=== PATIENT | male | born 2005 | race Caucasian/White ===

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

== ENCOUNTER 2024-09-03 23:12 | Observation (INO) | payer OTHER, SELFPAY ==
--- OUTSIDE RECORDS SUMMARY | 2024-09-03 23:21 | XMS_ITS | Clinical Summary ---
Author Organization [facility] Address [address] [id number] Care Team Providers Care Ventilating Expert Name Role Phone Dayna Monroe LINUS Primary Care Provider [phone] Allergies No known active allergies Medications buPROPion XL (Wellbutrin XL) 150 MG 24 hr tablet Take 150 mg by mouth 1 (one) time each day. Do not crush, chew, or split. Active guanFACINE (Intuniv) 2 mg 24 hr tablet Active amLODIPine (Norvasc) 5 MG tabletIndication s:Mixed connective tissue disease (CMS/HCC),Acro osteolysis syndrome Take 1 tablet (5 mg total) by mouth 2 (two) times a day. 60 tablet 2 08/20/2021 Active levocetirizine (Xyzal) 5 MG tablet if needed. 10/02/2021 Active hydroxychloroqui ne (Plaquenil) 200 MG tabletIndication s:Overlap syndrome (CMS/HCC),Mixed connective tissue disease (CMS/HCC),Rheuma toid arthritis involving multiple sites with positive rheumatoid factor (CMS/HCC) Take 1 tablet (200 mg total) by mouth 1 (one) time each day. 30 tablet 2 11/18/2021 Active mycophenolate (Cellcept) 500 MG tabletIndication s:Overlap syndrome (CMS/HCC),Mixed connective tissue disease (CMS/HCC) Take 1 tablet (500 mg total) by mouth 2 (two) times a day. 60 tablet 2 11/18/2021 Active Active Problems Problem Noted Date Diagnosed Date Nonadherence to medication 08/20/2021 Interstitial lung disease 01/14/2021 Overview (08/20/2021): Last PFTs 07/[address] chest 11/2020: DLCO adj 90.5% pred, FVC 105% predicted, FEV1 97% 04/2021: DLCO adj 85% pred, FVC 106%, FEV1 92% 10/2020: DLCO adj 69% pred, FVC 96%, FEV1 80% Rheumatoid arthritis involvi ng multiple sites with positive rheumatoid factor 11/30/2020 Sclerodactyly 11/30/2020 Mixed connective tissue disease 10/10/2020 Overview (11/18/2021): +Diffuse sclerodactyly w/acroosteolysis, arthritis w/contracture. +ILD. 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 +RF+CCP. Neg: dsDNA, SSA/SSB, scl70, centromere, Jo1. Last echo 10/2020 - normal (due 1y, 10/2021). Last PFTs 07/2021 (q6m, next 01/2022) - stably improved. 09/2020: First visit [facility]. 3-4 years hand swelling/Raynauds/digital pitting. NO h/o dyspnea or GI s/s. Initial exam s/f: digital pitting (b/l 2nd/3rd digits), acroosteolysis (b/l index fingers), sclerodactyly, L wrist effusion, diffuse joint contracture and limited ROM of: neck extension, shoulders, b/l elbow ext, b/l wrist flex/ext, fingers (flexion contracture of all), hips (limited ext rotation), ankles (limited eversion/inversion, flex/ext w/synovial hypertrophy). Toes w/lat deviation. Plan: short pred taper (20 mg, decr x5 mg weekly x4w), HCQ (200 mg PO daily, =3.3 mg/kg/d) and MMF (start at 500 mg BID, increase to goal 1000 mg BID, = 588 mg/m^2/dose). +PT/OT. RTC 4w. 11/2020: Little improvement w/steroids. Not started PT/OT. Reduced DLCO (70% pred). Refer to pulm. PFTs q3m (next Jan 2021). Echo wnl. Meds: incr MMF to goal (1000 mg BID), incr HCQ to 300 mg qd (5 mg/kg/d), start amlodipine (2.5 mg qd x14d then increase to 5 mg daily if tolerated). Discussed ritux for arthritis, ILD- getting pre-ritux labs today. 12/2020: Interval mild softening of skin on hands. Mild improvement in finger/shoulder ROM w/OT. Still many deficits. Issues w/med adherence. Reviewed meds, doses. Continue MMF (1000 mg PO BID), HCQ (300 mg PO qd) and amlodipine (5 mg PO qd). Pt/aunt prefer to pursue ritux after dental implants complete. IACS to R wrist today. F/u pulm for ILD. RTC Mar 2021. PFTs Mar 2021. 03/2021: Worsened digital pitting/Raynaud's. Incr amlodipine (from 5 to 10 mg daily)- consider sildenafil if no improvement. 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 Continue MMF (1000 mg PO BID) and HCQ (300 mg qd). Continue to recommend Ritux. Due for repeat PFTs- ordered. RTC April 2021. 04/2021: Pitting increased (R 1/2/3, L 2/3) despite BID amlodipine. Plan to rx sildenafil. Otherwise, skin texture, ROM and arthritis all improving. Repeat PFTs Apr 2021 improved compared to Oct 2020 (DLCO normalized, FEV1/FVC improved). Significant unintentional weight loss (10 lbs/4 months). Favor calorie deficit (over malabsorption). CTM, consider oral supplement/nutritional eval. Continue MMF (1000 mg PO BID , 600 mg/m^2/dose), HCQ 300 mg po qd (5.2 mg/kg/d). Family willing to proceed with Ritux infusions. Labs due May 2021. RTC July 2021. PFTs July. 07/2021- July PFTs stably improved. Received Ritux (1000 mg IV x2, 07/09 & 07/26/21). 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 Bradycardia during infusions --> EKG --> abnormal. Referred to adult cards. Wearing holter, has cardiac MRI scheduled. Arthritis stable/improved. Pitting stable. Self-DC'd PT/OT. Issues w/med adherence. Recommend resuming PT/OT. Continue MMF (1000 mg PO BID) and HCQ (300 mg PO qd). Wt stable/low. Work on increasing intake. Next PFTs Jan 2022. RTC Oct 2021, w/labs at visit. 10/2021- Worsening digital pitting (now R 1/2/3/4 and L 1/2/3 on distal tips, ALSO with dorsal pitting left 4th PIP, new), i/s/o self DC of IMT d/t perceived sfx (nausea, fatigue). Plan to decrease MMF (to 500 mg PO BID) and HCQ (to 200 mg PO qd), HOLD amlodipine (typically 5 mg PO BID). Will check in w/Jaylen in 3w. If feeling better, will resume amlodipine. Labs today. Next PFTs Mar/Apr 2022. RTC Jan 2022. 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 Resolved Problems Problem Noted Date Diagnosed Date Resolved Date Nicotine vapor product user 10/10/2020 11/30/2020 Family History Medical History Relation Name Comments Lung cancer Father Arthritis Neg Hx Lupus Neg Hx Scleroderma Neg Hx Thyroid disease Neg Hx Relation Name Status Comments Father Social History Tobacco Use Types Packs/Day Years Used Date Smoking Tobacco: Never Smokeless Tobacco: Former Sex and Gender Information Value Date Recorded Sex Assigned at Not on file Legal Sex Male 12:34 PM EDT Gender Identity Not on file Sexual Orientation Not on file Last Filed Vital Signs Vital Sign Reading Time Taken Comments Blood Pressure 104/61 11/18/2021 12:13 PM EDT Pulse 76 11/18/2021 12:13 PM EDT Temperature 37.2 C (99 F) 11/18/2021 12:13 PM EDT Respiratory Rate 18 11/18/2021 12:13 PM EDT Oxygen Saturation - - Inhaled Oxygen Concentration - - Weight 54.7 kg (120 lb 9.5 oz) 11/18/2021 12:13 PM EDT Height 174.4 cm (5' 8.66 ) 11/18/2021 12:13 PM E DT Body Mass Index 17.98 11/18/2021 12:13 PM EDT Plan of Treatment Health Maintenance Due Date Last Done Comments [facility]-Depression Screening 2003 [facility]-HIV Screening 2003 [facility]-Infant/Child/Adol SDOH Screenings 2003 [id number] Vaccine (#1) 2008 [facility]-Pneumococcal Vaccine: Pediatrics (0 to 5 Years) and At-Risk Patients (6 to 49 Years) (1 of 1 - PPSV23) 2009 2003, 2003 HPV Vaccines (3 - Risk male 3-dose series) 10/28/2020 06/28/2020, 10/07/2017 [facility]- SDOH Screenings 2021 [facility]-Adult SDOH Screenings 2021 [facility]-Zoster Vaccines (1 of 2) 2022 09/17/2015, 12/10/2004 [facility]-Influenza Vaccine (#1) 2024 03/05/2017 [facility]-DTaP,Tdap,and Td Vaccines (7 - Td or Tdap) 09/16/2025 09/17/2015, 09/15/2007, 02/05/2005, Additional history exists [facility]-Hepatitis B Vaccines Completed 004, 2003, 2003 [facility]-HIB Vaccines Completed 12/10/2004, , 2003, Additional history exists [facility]-IPV Vaccines Completed 09/15/2007, 08/2004, 2003, Additional history exists [facility]-Varicella Vaccines Completed 09/17/2015, 2004 [facility]-Hepatitis A Vaccines Completed 10/07/2017, 05/2017 [facility]-Hepatitis C Screening Completed 11/30/2020 [facility]-Rotavirus Vaccines Aged Out No lo nger eligible based on patient's age to complete this topic Procedures Procedure Name Priority Date/Time Associated Diagnosis Comments HEPATITIS C ANTIBODY W/REFLEX TO HCV QUANT PCR Routine 11/30/2020 11:38 AM EDT Mixed connective tissue disease (CMS/HCC) from Last 3 Months or Most Recently Relevant to Health Maintenance Results * Hepatitis C Antibody (11/30/2020 11:38 AM EDT) Hepatitis C Antibody Negative Negative 11/30/2020 6:29 PM EDT [facility] Blood Venous blood specimen / Unknown Venipuncture / Unknown 11/30/2020 11:38 AM EDT 11/30/2020 11:38 AM EDT us Colleen Hull MD LAB BLOOD ORDERABLES Final Resu lt [facility] [address] [place] [address] from Last 3 Months or Most Recently Relevant to Health Maintenance Care Teams Ventilating Expert Relationship Specialty Start Date End Date Dayna Monroe PA [address] [place] [address] PCP - General 07/13/20
[2024-09-03 23:22] VITALS: BP 151/92; PULSE 127; RESP 20; TEMP 37.3; O2SAT 96; BMI 17.9
--- NOTE | 2024-09-03 23:33 | ECG_ITS ---
APPROVED REPORT Exam: Resting ECG HR:127 bpm ECG Measurements Heart Rate 127 AXES IA 117 P 57 QRSd 102 QRS 84 QT 286 T 65 QTc 361 Conclusion SINUS TACHYCARDIA WITH SHORT IA INTERVAL POSSIBLE RIGHT VENTRICULAR CONDUCTION DELAY [RSR (QR) IN V1/V2] EARLY REPOLARIZATION [ST ELEVATION WITH NORMALLY INFLECTED T-WAVE] ABNORMAL RHYTHM ECG UNCONFIRMED REPORT Electronically signed by : RUTH WYNNE, 09/05/2024 04:58:34
--- NOTE | 2024-09-03 23:44 | XR_ITS ---
PROCEDURE INFORMATION: Exam: XR Chest Exam date and time: 09/03/2024 11:48 PM Age: 19 years old Clinical indication: Pain; On breathing; Additional info: SOA TECHNIQUE: Imaging protocol: Radiologic exam of the chest. Views: 2 views. COMPARISON: No relevant prior studies available. FINDINGS: Lungs: Unremarkable. No consolidation. Pleural spaces: Minimal blunting of the left posterior costophrenic angle suggestive of a small pleural effusion. No pneumothorax. Heart/Mediastinum: Unremarkable. No cardiomegaly. Bones/joints: Chronic bilateral rib fractures. IMPRESSION: Minimal blunting of the left posterior costophrenic angle suggestive of a small pleural effusion.
[2024-09-03 23:51] LABS: Hematocrit 38.6 % (42.0-52.0); Hemoglobin 12.4 g/dL (14.1-18.0); Immature Granulocytes % 0.9 %; Mean Corpuscular HGB Conc 32.1 g/dL (31.8-35.4); Mean Corpuscular Hemoglobin 26.0 pg (27.0-31.2); Mean Corpuscular Volume 80.9 fl (80-94); Nucleated Red Blood Cells % 0 %; Platelet Count 414 K/mm3 (142-424); Red Blood Count 4.77 M/mm3 (4.60-6.20); Red Cell Distribution Width-SD 40.3 fL; White Blood Count 14.2 K/mm3 (4.8-10.8)
[2024-09-03 23:57] LABS: Alanine Aminotransferase 16 U/L (12-78); Albumin Level 4.3 g/dl (3.5-5.0); Albumin/Globulin Ratio 1.0 (1.1-1.8); Alkaline Phosphatase 87 U/L (38-126); Anion Gap 15.2 mEq/L (5-15); Aspartate Amino Transferase 32 U/L (17-59); Bilirubin,Total 0.9 mg/dl (0.2-1.3); Blood Urea Nitrogen 7 mg/dl (9-20); Calcium 9.2 mg/dl (8.4-10.2); Carbon Dioxide 29 mmol/L (22.0-30.0); Chloride 93 mmol/L (98-107); Creatinine Clearance Estimated 134 mL/min (50-200); Creatinine,Serum 0.70 mg/dl (0.66-1.25); Estimated Glomerular Filt Rate 142 ml/min (>60); GFR (African American) 172 ML/MIN (>60); Globulin 4.5 g/dL (1.3-3.2); Glucose 139 mg/dl (74-100); Potassium 4.2 mmoL/L (3.5-5.1); Sodium 133 mmol/L (136-145); Total Protein,Serum 8.8 g/dl (6.3-8.2)
--- NOTE | 2024-09-03 23:57 | ED_ITS ---
Discharge Plan Disposition Patient Disposition: Admitted Clinical Impressions Clinical Impression: Pericarditis, Acute pericardial effusion, Tachycardia with heart rate 121-140 beats per minute Discharge ED Provider: Calos Mcclure General Adult HPI General Chief complaint: Shortness of Breath/Dyspnea Stated complaint: soa, abd pain Time Seen by Provider: 09/03/24 23:28 Mode of Arrival: Ambulatory Source of Information: Patient Description of Symptoms (Recalled from ER Triage Doc. by RN): Pt presents to ED for SOA X 1 week. Pt is afraid he has pneumonia. Pt states he has felt bad for approx 1 week. He has not taken any OTC meds and did not see PCP. Pt admits to Meth & marijuana use. Pt states he last used meth 2 day ago. Pt has hx of Raynaud's Syndrome. Pt is A&O*4 and only has pain upon inspiration. Rates pain 8/10 at that time. History of Present Illness HPI narrative: 19-year-old male with history of mixed connective tissue disorder, possible rheumatoid arthritis and Raynaud's, presents for worsening shortness of breath. He reports it has been ongoing for about a week but has gotten significantly worse over the last couple of days. Reports some chest pain and pain with inspiration. He reports intermittent meth and marijuana use, last use meth approximately 2 days ago. He reports nonproductive cough. Nothing like this has happened before. He denies fever. Related Data Previous Rx's ?Medication ?Instructions ?Recorded amoxicillin 500 mg tablet 500 mg PO BID 10 days #20 ta bs 07/28/23 prednisone 20 mg tablet 20 mg PO BID 5 days #10 tabs 07/28/23 Allergies Allergy/AdvReac Type Severity Reaction Status Date / Time No Known Allergies Allergy Verified 07/28/23 09:58 [facility] Disclaimer: The information contained in this section may have been updated after the patient was seen, as this information can be updated by other users. Medical History Tobacco use Anxiety and depression Mixed connective tissue disease (~05/2020) Insomnia Rheumatoid arthritis History of methamphetamine abuse Raynaud disease Attention deficit hyperactivity disorder (ADHD) Anxiety Social History Smoking Status: Current every day smoker tobacco type: cigarettes packs per day: 1 alcohol intake: never substance use type: former substance user current occupational status: other Travel in the last 8 weeks?: Inside the [place] Have you lived/traveled outside US in past 30 days?: No Contact w/someone who lives/traveled outside US past 30 days?: No Exposure to someone with infectious disease in past 14 days?: No Do you have a fever (greater than 100.4 F or 38 C)?: No Have you tested positive for COVID-19?: No Exposed to someone with COVID-19 in past 14 days?: No Do you have a sore throat?: No Do you have a cough?: No Do you have any weakness?: No Do you have any diarrhea?: No Are you experiencing any unusual bleeding?: No Do you have any muscle aches/pain?: No Do you have any abdominal pain?: Yes Are you experiencing loss of taste or smell?: No Other Medical History Have you received the Pneumonia Vaccine: No ROS Obtained: Yes All systems reviewed & no additional complaints except as documented Physical Exam General General appearance: alert and in no apparent distress Head Head exam: atraumatic and normocephalic Eye Eye exam: Present normal appearance, PERRL and EOMI ENT ENT exam: Present normal oropharynx and normal external ear exam Neck Neck exam: Present normal inspection and full ROM Chest Chest inspection: Present normal inspection and symmetric chest wall rise; Absent tenderness Respiratory Respiratory exam: Present normal lung sounds bilaterally and respiratory distress (Tachypnea) Cardiovascular Cardiovascular exam: Present normal rhythm and tachycardia Abdominal Exam Abdominal exam: Present soft; Absent distention, tenderness or guarding Extremities Exam Extremities exam: Present normal inspection; Absent edema or joint swelling Back Exam Back exam: Present normal inspection; Absent tenderness Neurological Exam Neurological exam: Present alert and oriented X3; Absent motor sensory deficit Psychiatric Psychiatric exam: Present normal affect and normal mood Skin Skin exam: Present warm, dry and normal color Lymphatic Lymphatic Findings: no adenopathy Medical Decision Making Medical Records Medical records reviewed: Yes I reviewed the patient's medical records. Screening: Per USPSTF and CDC recommendations, given the prevalence of disease in our region, it is our hospital?s policy to screen for HIV and viral Hepatitis for all patients aged 18 and over and those with ongoing risk factors. Driss Inquiry Pt receiving controlled substance: No Driss was queried for this patient: No Vital Signs: 09/03/24 23:22 07/06/25 02:28 Temperature 99.2 F 98.8 F Temperature Source Oral Oral Pulse Rate 120 H Pulse Rate [Left] 127 H Respiratory Rate 20 20 Blood Pressure 112/76 Blood Pressure [Right Arm] 151/92 H Blood Pressure Mean [Right Arm] 111 Blood Pressure Source Automatic Cuff Blood Pressure Position Sitting 02 Sat by Pulse Oximetry 96 Oxygen Delivery Method Room Air Room Air Lab Data Lab results reviewed: Yes I reviewed the patient's lab results. Lab Results 09/03/24 23:21: WBC 14.2 H, RBC 4.77, Hgb 12.4 L, Hct 38.6 L, MCV 80.9, MCH 26.0 L, MCHC 32.1, RDW 13.6, Plt Count 414, MPV 10.0, Neut % (Auto) 71.1, Lymph % (Auto) 15.6, [place] % (Auto) 11.9 H, Eos % (Auto) 0.1, Baso % (Auto) 0.4, Neut # (Auto) 10.1 H, Lymph # (Auto) 2.2, [place] # (Auto) 1.7 H, Eos # (Auto) 0.0, Baso # (Auto) 0.1, Total Counted 100, Neutrophils % (Manual) 73, Lymphocytes % (Manual) 15, Monocytes % (Manual) 12 H, Platelet Estimate Normal, RBC Morphology Normal, D-Dimer 1.10 H, Sodium 133 L, Potassium 4.2, Chloride 93 L, Carbon Dioxide 29, A nion Gap 15.2 H, BUN 7 L, Creatinine 0.70, Estimated Creat Clear 134, Estimated GFR 142, Est GFR ( Amer) 172, Glucose 139 H, Calcium 9.2, Total Bilirubin 0.9, AST 32, ALT 16, Alkaline Phosphatase 87, Troponin I 0.02, NT-Pro-B Natriuret Pep 792 H, Total Protein 8.8 H D, Albumin 4.3, Globulin 4.5 H, A lbumin/Globulin Ratio 1.0 L, HCV Ab HECTOR w/Rflx PCR Qn Negative, HIV Ag/Ab Combo Qual Negative 09/03/24 23:21 09/03/24 23:21 Orders (Tests/Meds): ED MEDICATIONS Discontinued Medications Generic Name Dose Route Start Last Admin Trade Name Freq PRN Reason Stop Dose Admin Iopamidol 70 ml 09/04/24 01:09 Iopamidol-370 (76%);100ml Bottle IV 09/04/24 01:10 ONCE ONE Sodium Chloride 50 ml 09/04/24 01:09 0.9 % Sodium Chloride 50 Ml Vial IV 09/04/24 01:10 ONCE ONE Sodium Chloride 10 ml 09/04/24 01:09 Sodium Chloride 0.9% 10ml Syr (Rad Only) IV 09/04/24 01:10 ONCE ONE ORDERS Category Date Time Status CT angio chest PE protocol Stat Cat Scan 09/04/24 00:42 Completed CXR 2 view (NOT portable) [XR chest 2V] Stat Exams 09/03/24 23:44 Completed BNP [NT Pro Brain Natriuretic Pep.] Stat Lab 09/03/24 23:21 Completed CBC w/Auto Diff [Complete Blood Count Auto Diff] Stat Lab 09/03/24 23:21 Completed CMP [Comprehensive Metabolic Panel] Stat Lab 09/03/24 23:21 Completed D-Dimer Stat Lab 09/03/24 23:21 Completed HIV Combo Stat Lab 09/03/24 23:21 Completed Hepatitis C Ab Qual. W/ RFX Stat Lab 09/03/24 23:21 Completed Troponin I Q3H Lab 09/03/24 23:21 Completed Troponin I Q3H Lab 09/04/24 02:45 Ordered ECG Data Tracing #1: I reviewed this ECG and interpreted as documented below: Sinus tachycardia, rate of 127, some SD depression ECG initial impression date: 09/03/24 ECG initial impression time: 23:20 HEART Score History (anamnesis): Slightly suspicious ECG: Non-specific disturbance Age: <45 years Risk factors: No known risk factors Troponin: </= normal limit HEART Score: 1 Medical Decision Narrative: 19-year-old male with history of connective tissue disorder (possible RA/Raynaud's) presents for 1 week of worsening shortness of breath. History was obtained via interactive discussion with patient, chart review. On arrival, patient is afebrile, tachycardic to 130 at rest, tachypneic to 35 at rest, satting 100% on room air, moving all extremities spontaneously. Full physical exam performed and significant for clear lungs bilaterally Differential includes but is not limited to pneumonia, PE, pericarditis, myocarditis, pneumothorax intoxication, withdrawal. Workup initiated including CBC CMP BNP troponin EKG chest x-ray D-dimer. On re-evaluation, patient remains normotensive, tachycardic Laboratory workup independently interpreted by me and significant for elevated D-dimer, will follow-up with CT PE. Normal initial troponin. BNP elevated at over 700. White count 14. Imaging independently interpreted by me and significant for no PE, moderate pericardial effusion with small pleural effusion. See radiology read for full review of final results. EKG independently interpreted by me and significant for sinus tachycardia. Bedside echo was performed. Patient has moderate pericardial effusion with grossly normal TAPSE, EPSS, no evidence of tamponade, no wall motion abnormalities, noted heart strain. Given patient history, exam and workup, patient's presentation most likely represents pericarditis/myocarditis. Given vital sign abnormalities, I think patient would benefit from observation and formal echo as well as cardiology assessment. Interactive discussion was had with hospitalist for admission.. Procedures Risk/Benefits of Procedure(s) Were Explained: Yes Limited Ultrasound Indication:: Limited cardiac ultrasound Indication: Shortness of air Views Obtained: PLAX, PSAX, Apical 4-chamber, Subxiphoid Findings: Moderate pericardial effusion without evidence of tamponade. Normal EPSS, normal TAPSE, no focal wall motion abnormalities. Impression: Moderate pericardial effusion without evidence of tamponade. Normal EPSS, normal TAPSE, no focal wall motion abnormalities. Images were saved to permanent archive The study was technically adequate This study was performed by me, and I personally interpreted all images/videos. Critical Care Critical Care Time Critical Care Time: No
[2024-09-04] VITALS (8 sets, daily range): BP systolic 107–128; BP diastolic 66–77; PULSE 98–120; RESP 14–22; TEMP 36.6–37.3; O2SAT 96–98; BMI 18.0
[2024-09-04 00:06] LABS: NT Pro Brain Natriuretic Pep. 792 pg/mL (0-125)
[2024-09-04 00:09] LABS: Troponin I 0.02 ng/ml (0.00-0.034)
[2024-09-04 00:14] LABS: D-Dimer 1.10 ug/mL (0.0-0.5)
[2024-09-04 00:36] LABS: Total Cells Counted 100
[2024-09-04 00:37] LABS: RBC Morphology Normal
--- NOTE | 2024-09-04 00:42 | CT_ITS ---
PROCEDURE INFORMATION: Exam: CTA Chest With Contrast Exam date and time: 09/04/2024 1:09 AM Age: 19 years old Clinical indication: Shortness of breath; Additional info: Cp, SOA, positive dimer TECHNIQUE: Imaging protocol: Computed tomographic angiography of the chest with contrast. Exam focused on the arteries. 3D rendering (Not supervised by radiologist): MIP and/or 3D reconstructed images were created by the technologist. Radiation optimization: All CT scans at this facility use at least one of these dose optimization techniques: automated exposure control; mA and/or kV adjustment per patient size (includes targeted exams where dose is matched to clinical indication); or iterative reconstruction. Contrast material: ISOVUE; Contrast volume: 70 ml; Contrast route: INTRAVENOUS (IV); COMPARISON: CR XR CHEST 2V 09/03/2024 11:48 PM FINDINGS: Pulmonary arteries: No pulmonary embolus. Aorta: Unremarkable. No aortic aneurysm. No aortic dissection. Lungs: Left lower lobe calcified granuloma. Minimal bronchial opacification in the right lower lobe may suggest mild aspiration. Pleural spaces: Small left-sided pleural effusion and trace right-sided pleural effusion. No pneumothorax. Heart: Moderate pericardial effusion. Lymph nodes: Mediastinal and left hilar calcified lymph nodes. Bones/joints: Unremarkable. No acute fracture. Soft tissues: Unremarkable. IMPRESSION: 1. No pulmonary embolus. 2. Moderate pericardial effusion. 3. Small left-sided pleural effusion and trace right-sided pleural effusion.
[2024-09-04 01:33] LABS: Hepatitis C Ab Qual. W/ RFX NEGATIVE (Negative)
--- NOTE | 2024-09-04 03:23 | PC.NURSE ---
Patient arrived to floor via wheelchair from ED at 03:21.
[2024-09-04 03:43] LABS: Troponin I 0.02 ng/ml (0.00-0.034)
[2024-09-04] MEDS: guaiFENesin 200MG/10ML SYRUP UDC 200 MG PO (05:10)
--- NOTE | 2024-09-04 05:29 | EXP.HP ---
History of Present Illness *Admission Date: 09/04/24 *Reason for visit:: SOB *History of present illness: Patient is a 19-year-old male with past medical history of active tobacco use, clinical seizure disorder who presents to the hospital due to shortness of breath according to patient he thinks that he has been having pneumonia he has been feeling sick for the past 1 week and has been getting short of breath also has cough associated without phlegm production. He also mentions he is actively using tobacco along with meth use and marijuana intermittently. Last meth use 2 days ago. Otherwise he denied fevers chills diarrhea constipation dysuria. On further evaluation patient was found to have pericardial effusion and was admitted for further evaluation. [facility] Disclaimer: The information contained in this section may have been updated after the patient was seen, as this information can be updated by other users. Medical History Tobacco use Anxiety and depression Mixed connective tissue disease (~05/2020) Insomnia Rheumatoid arthritis History of methamphetamine abuse Raynaud disease Attention deficit hyperactivity disorder (ADHD) Anxiety Family History (Updated 09/04/24 @ 03:41 by Winston Dai RN) Father Diabetes Social History (Updated 09/04/24 @ 04:28 by Suri Solo RN) Smoking Status: Current every day smoker tobacco type: cigarettes packs per day: 1 alcohol intake: current substance use type: marijuana and methamphetamine current occupational status: employed and other Travel in the last 8 weeks?: Inside the [place] Have you lived/traveled outside US in past 30 days?: No Contact w/someone who lives/traveled outside US past 30 days?: No Exposure to someone with infectious disease in past 14 days?: No Do you have a fever (greater than 100.4 F or 38 C)?: No Have you tested positive for COVID-19?: No Exposed to someone with COVID-19 in past 14 days?: No Do you have a sore throat?: No Do you have a cough?: No Do you have any weakness?: No Do you have any diarrhea?: No Are you experiencing any unusual bleeding?: No Do you have any muscle aches/pain?: No Do you have any abdominal pain?: Yes Are you experiencing loss of taste or smell?: No Other Medical History Have you received the Flu Vaccine for this season: No Have you received the Pneumonia Vaccine: No Review of Systems Review of Systems Review of systems:: pertinent systems reviewed and negative unless documented below Meds Home Medications and Allergies Home Medications ?Medication ?Instructions ?Recorded ?Confirmed ?Type amoxicillin 500 mg tablet 500 mg PO BID 10 days #20 tabs 07/28/23 07/28/23 Rx prednisone 20 mg tablet 20 mg PO BID 5 days #10 tabs 07/28/23 07/28/23 Rx New Prescriptions to Start Prescriptions: Allergies Allergy/AdvReac Type Severity Reaction Status Date / Time No Known Allergies Allergy Verified 07/28/23 09:58 Exam Data for Last 24 hours Vital signs and Labs for Last 24 Hours: Temp Pulse Resp BP Pulse Ox O2 Del Method 98.8 F 110 H 22 128/77 96 Room Air 09/04/24 03:46 09/04/24 04:00 09/04/24 03:46 09/04/24 03:46 09/04/24 03:46 09/04/24 03:46 Laboratory Results - last 24 hr 09/03/24 23:21: WBC 14.2 H, RBC 4.77, Hgb 12.4 L, Hct 38.6 L, MCV 80.9, MCH 26.0 L, MCHC 32.1, RDW 13.6, Plt Count 414, MPV 10.0, Neut % (Auto) 71.1, Lymph % (Auto) 15.6, [place] % (Auto) 11.9 H, Eos % (Auto) 0.1, Baso % (Auto) 0.4, Neut # (Auto) 10.1 H, Lymph # (Auto) 2.2, [place] # (Auto) 1.7 H, Eos # (Auto) 0.0, Baso # (Auto) 0.1, Total Counted 100, Neutrophils % (Manual) 73, Lymphocytes % (Manual) 15, Monocytes % (Manual) 12 H, Platelet Estimate Normal, RBC Morphology Normal, D-Dimer 1.10 H, Sodium 133 L, Potassium 4.2, Chloride 93 L, Carbon Dioxide 29, Anion Gap 15.2 H, BUN 7 L, Creatinine 0.70, Estimated Creat Clear 134, Estimated GFR 142, Est GFR ( Amer) 172, Glucose 139 H, Calcium 9.2, Total Bilirubin 0.9, AST 32, ALT 16, Alkaline Phosphatase 87, Troponin I 0.02, NT-Pro-B Natriuret Pep 792 H, Total Protein 8.8 H D, Albumin 4.3, Globulin 4.5 H, Albumin/Globulin Ratio 1.0 L, HCV Ab HECTOR w/Rflx PCR Qn Negative, HIV Ag/Ab Combo Qual Negative 09/04/24 03:05: Troponin I 0.02 I & O for Last 24 hours: Intake & Output 09/01/24 09/02/24 09/03/24 09/04/24 23:59 23:59 23:59 23:59 Weight 56.699 kg 57.243 kg Constitutional Constitutional: no acute distress *Routine HEENT Exam Head: Present normocephalic Eye: Present EOMI and PERRL ENT: Present mucous membranes moist *Routine Neck Exam Neck: Present supple; Absent lymphadenopathy *Routine Respiratory Exam Respiratory: Present CTA bilaterally *Routine Cardiovascular Exam Cardiovascular: Present Normal S1, Normal S2 and tachycardia *Routine Abdominal Exam Abdominal: Present soft and normoactive bowel sounds; Absent tenderness *Routine Rectal Exam Rectal:: deferred *Routine Genitalia Exam Genitalia:: deferred *Routine Extremities Exam Extremities: Absent cyanosis, clubbing or edema *Routine Skin Exam Skin: Present warm; Absent rash *Routine Neurological Exam Neurological: Present alert and oriented X3 Assessment and Plan *Assessment and plan (1) Acute pericardial effusion: Status: Acute Category: Medical Code(s): I30.9 - Acute pericarditis, unspecified (2) Tachycardia with heart rate 121-140 beats per minute: Status: Acute Category: Medical Code(s): R00.0 - Tachycardia, unspecified (3) Pericarditis: Status: Acute Category: Medical Code(s): I31.9 - Disease of pericardium, unspecified Plan Patient is a 19-year-old male with past medical history of active tobacco use, clinical seizure disorder who presents to the hospital due to shortness of breath according to patient he thinks that he has been having pneumonia he has been feeling sick for the past 1 week and has been getting short of breath also has cough associated without phlegm production. He also mentions he is actively using tobacco along with meth use and marijuana intermittently. Last meth use 2 days ago. Otherwise he denied fevers chills diarrhea constipation dysuria. On further evaluation patient was found to have pericardial effusion and was admitted for further evaluation. Assessment and plan Shortness of breath, tachycardia likely secondary to pericardial effusion suspect pericardititis Consult cardiology Monitor on cardiac telemetry check viral panel Order echocardiogram CT PE performed in the emergency department does show small left pleural effusion as well as moderate-sized pericardial effusion proBNP is 792, elevated Tachycardia, leukocytosis, tachypnea, cannot rule out infectious process Check UA Chest x-ray negative for consolidation - Monitor off antibiotics Check blood cultures Start empirical antibiotics with vancomycin, Zosyn D-dimer checked, significantly elevated, CT PE negative for PE, did not show pneumonia Anion gap metabolic acidosis Hyponatremia - Monitor BMP DVT prophylaxis-subcutaneous heparin
[2024-09-04] MEDS: PIPERACILLIN/TAZO 3.375 GM in 0.9 % SODIUM CHLORIDE 50 ML IV ×3 (06:34→18:05)
[2024-09-04] MEDS: VANCOMYCIN CONSULT REQUEST 1 EACH NOTAPPLIC (07:00)
[2024-09-04 07:18] LABS: Hematocrit 38.1 % (42.0-52.0); Hemoglobin 12.1 g/dL (14.1-18.0); Immature Granulocytes % 0.7 %; Mean Corpuscular HGB Conc 31.8 g/dL (31.8-35.4); Mean Corpuscular Hemoglobin 25.3 pg (27.0-31.2); Mean Corpuscular Volume 79.5 fl (80-94); Nucleated Red Blood Cells % 0 %; Platelet Count 367 K/mm3 (142-424); Red Blood Count 4.79 M/mm3 (4.60-6.20); Red Cell Distribution Width-SD 39.7 fL; White Blood Count 12.3 K/mm3 (4.8-10.8)
[2024-09-04 08:25] LABS: Anion Gap 17.4 mEq/L (5-15); Blood Urea Nitrogen 7 mg/dl (9-20); Calcium 9.3 mg/dl (8.4-10.2); Carbon Dioxide 26 mmol/L (22.0-30.0); Chloride 96 mmol/L (98-107); Creatinine Clearance Estimated 189 mL/min (50-200); Creatinine,Serum 0.50 mg/dl (0.66-1.25); Estimated Glomerular Filt Rate 210 ml/min (>60); GFR (African American) 254 ML/MIN (>60); Glucose 112 mg/dl (74-100); Potassium 4.4 mmoL/L (3.5-5.1); Sodium 135 mmol/L (136-145)
--- NOTE | 2024-09-04 08:28 | P.CONPHA_ITS ---
Pharmacy Consult Date: 09/04/24 Time: 08:28 Referring provider: DR. TERRY Reason for Consult:: VANCOMYCIN DOSING Allergies Allergy/AdvReac Type Severity Reaction Status Date / Time No Known Allergies Allergy Verified 07/28/23 09:58 Home Medications ?Medication ?Instructions ?Recorded ?Confirmed ?Type amoxicillin 500 mg tablet 500 mg PO BID 10 days #20 ta bs 07/28/23 07/28/23 Rx prednisone 20 mg tablet 20 mg PO BID 5 days #10 tabs 07/28/23 07/28/23 Rx New Prescriptions to Start Prescriptions: Height: 1.78 m Weight: 57.243 kg Laboratory Results:: Laboratory Results - last 24 hr 09/03/24 23:21: WBC 14.2 H, RBC 4.77, Hgb 12.4 L, Hct 38.6 L, MCV 80.9, MCH 26.0 L, MCHC 32.1, RDW 13.6, Plt Count 414, MPV 10.0, Neut % (Auto) 71.1, Lymph % (A uto) 15.6, [place] % (Auto) 11.9 H, Eos % (Auto) 0.1, Baso % (Auto) 0.4, Neut # (Auto) 10.1 H, Lymph # (Auto) 2.2, [place] # (Auto) 1.7 H, Eos # (Auto) 0.0, Baso # (Auto) 0.1, Total Counted 100, Neutrophils % (Manual) 73, Lymphocytes % (Manual) 15, Monocytes % (Manual) 12 H, Platelet Estimate Normal, RBC Morphology Normal, D-Dimer 1.10 H, Sodium 133 L, Potassium 4.2, Chloride 93 L, Carbon Dioxide 29, Anion Gap 15.2 H, BUN 7 L, Creatinine 0.70, Estimated Creat Clear 134, Estimated GFR 142, Est GFR ( Amer) 172, Glucose 139 H, Calcium 9.2, Total Bilirubin 0.9, AST 32, ALT 16, Alkaline Phosphatase 87, Troponin I 0.02, NT-Pro-B Natriuret Pep 792 H, Total Protein 8.8 H D, Albumin 4.3, Globulin 4.5 H, Albumin/Globulin Ratio 1.0 L, HCV Ab HECTOR w/Rflx PCR Qn Negative, HIV Ag/Ab Combo Qual Negative 09/04/24 03:05: Troponin I 0.02 09/04/24 06:50: WBC 12.3 H, RBC 4.79, Hgb 12.1 L, Hct 38.1 L, MCV 79.5 L, MCH 25.3 L, MCHC 31.8, RDW 13.6, Plt Count 367, MPV 9.7, Neut % (Auto) 68.8, Lymph % (Auto) 16.9, [place] % (Auto) 13.0 H, Eos % (Auto) 0.2, Baso % (Auto) 0.4, Neut # (Auto) 8.4 H, Lymph # (Auto) 2.1, [place] # (Auto) 1.6 H, Eos # (Auto) 0.0, Baso # (Auto) 0.1 Medical History: Medical History (Updated 09/04/24 @ 02:35 by Calos Mcclure MD) Tobacco use Anxiety and depression Mixed connective tissue disease (~05/2020) Insomnia Rheumatoid arthritis History of methamphetamine abuse Raynaud disease Attention deficit hyperactivity disorder (ADHD) Anxiety Assessment and Plan Assessment and plan all Dx Assessment and Plan for all problems:: Pharmacokinetic dosing service Objective: Patient: Floor: Age: 19 yo Serum creatinine: 0.70 mg/dL Height: 70.1 Inches Weight (kg): 57.2 Assessment: IBW (kg): 73.23 Dosing wt(kg): 57.2 Estimated Creatinine clearance (ml/min): 130 Clearance limited to 130 ml/min to reduce risk of overdosing. CRCL method: Cockcroft and Gault using ibw(default). Drug selected: Vancomycin Loading dose (mg): Vd (liters): 45.8 (factor used: 0.8 L/kg) Da (hr-1): 0.112 Half life (hrs): 6.19 CLvanco=?? 5.130 L/hr Recommended dose: 1500 mg Interval: 12 hrs Infusion time (hrs): 2.0 Predicted peak (mcg/mL): 39.7 Predicted trough (mcg/mL): 12.95 Total body weight is being used for vancomycin dosing. Recommendations: Give Vancomycin 1500 mg q 12 hrs with an expected Cpeak of 39.7 mcg/ml and an expected Ctrough of 12.95 mcg/ml AUC 0-24 /BALAJI Data: BALAJI 0.5 mcg/mL:?? AUC/BALAJI:? 1169.6 BALAJI 1.0 mcg/mL:?? AUC/BALAJI:? 584.8 --------- BALAJI 1.5 mcg/mL:?? AUC/BALAJI:? 389.9 BALAJI 2.0 mcg/mL:?? AUC/BALAJI:? 292.4 Thank you for the consult, will continue to follow. -DARI BUCKLEY, JDD
[2024-09-04 08:30] LABS: C-Reactive Protein 254.7 mg/L (0-4)
[2024-09-04] MEDS: FUROSEMIDE 40MG/4ML VIAL 40 MG IV (09:04)
[2024-09-04] MEDS: HYDROCODONE/APAP 5/325 MG TABLET 1 TAB PO (09:51)
[2024-09-04] MEDS: VANCOMYCIN/WATER FOR INJ (PEG) 1.5 GM/300 ML PIGGYBACK IV ×2 (09:52→20:28)
[2024-09-04] MEDS: HEPARIN SODIUM 5,000 UNIT/ML VIAL 5000 UNIT SUBCUT ×2 (09:52→20:28)
[2024-09-04] MEDS: ACETAMINOPHEN 325MG TAB 650 MG PO (10:42)
[2024-09-04 10:52] LABS: Adenovirus,PCR Not Detected (NotDetected); Chlamydophila Pneumoniae, PCR Not Detected (NotDetected); Coronavirus 19, PCR Not Detected (NotDetected); Coronovirus HKU1,PCR Not Detected (NotDetected); Influenza A, PCR Not Detected (NotDetected); Influenza AH1, 2009 Not Detected (NotDetected); Influenza AH1, PCR Not Detected (NotDetected); Influenza AH3,PCR Not Detected (NotDetected); Influenza B, PCR Not Detected (NotDetected); Mycoplasma Pneumoniae, PCR Not Detected (NotDetected); Parainfluenza 1, PCR Not Detected (NotDetected); Parainfluenza 2, PCR Not Detected (NotDetected); Parainfluenza 3, PCR Not Detected (NotDetected); Parainfluenza 4, PCR Not Detected (NotDetected)
[2024-09-04 10:54] LABS: Microscopic, Urine URINE MICROSCOPIC (MICROSCOPIC)
[2024-09-04 11:01] LABS: Bilirubin,Urine Negative (Negative); Color,Urine YELLOW (Yellow); Glucose,Urine (UA) Negative (Negative); Ketones,Urine Negative (Negative); Leukocyte Esterase,Urine Negative (Negative); PH,Urine 7.0 (5.0-8.5); Protein,Urine Negative (Negative); Specific Gravity, Urine 1.010 (1.005-1.030); Urobilinogen,Urine 0.2 EU/dl (0.2)
[2024-09-04 12:24] LABS: Lyme Ab IgM CIA ND
[2024-09-04 12:32] LABS: Squamous Epithelial Cell,Urine Occasional #/hpf (0-5); WBC,Urine Occasional #/hpf (0-3)
[2024-09-04] MEDS: IPRATROPIUM/ALBUTEROL 3 ML NEB IH (13:30)
--- NOTE | 2024-09-04 13:58 | PC.NURSE ---
patient is alert and oriented x4. low grade temp of 99.1 this AM, tylenol administered. Patient complained of generalized pain early during this shift, treated per MAR. Respiratory panel and UA collected and sent to lab. Patient has been sleeping for most of the day. normal sinus to sinus tach on tele.
[2024-09-04] MEDS: PHENOL THROAT SPRAY 177 ML BOTTLE MM ×2 (18:36→20:28)
[2024-09-05] VITALS: BP 116/73; PULSE 100; PULSE 106; RESP 14; TEMP 37.1; O2SAT 99
[2024-09-05] MEDS: HYDROCODONE/APAP 5/325 MG TABLET 1 TAB PO
--- NOTE | 2024-09-05 | CA_ITS ---
APPROVED REPORT EXAM: Comprehensive 2D, Doppler, and color-flow Echocardiogram Community Planning Technician: Juany Walsh CRT Ht: 5 ft 10 in Wt: 126lbs BSA: 1.72 BP: 128/77 mmHg Indications: PERICARDIAL EFFUSION PER CT SCAN, RA, meth and marijuana use, smoker, sob 2D Dimensions LA Volume 28.40 mL LA Volume Index 16.10 mL/m2 (M/F) 16-34 M-Mode Dimensions RVDd 2.13 cm (0.9-2.6) LA Diam 2.17 cm (1.9-4.0) LVDd 3.90 cm (3.5-5.7) LVDs 2.35 cm (3.5-5.7) IVSd 1.37 cm (0.6-1.1) PWd 0.89 cm (0.6-1.1) EF (Teich) 71.00% FS 39.70% EDV (Teich) 65.90 mL TAPSE 1.65 (<1.7) ESV (Teich) 19.10 mL LV Diastology E Decel Time 150 (160-240 msec) E/A Ratio 1.23 MED A' 5.10 cm/s LAT A' 7.60 cm/s Aortic Valve AO Peak GR. 3.20 mmHg Mitral Valve MV E Max Miguel A. 55.0 (40-130 cm/s) MV A Velocity 45.0 (40-130 cm/s) E/A Ratio 1.23 MV PHT 44.0 ms Pulmonary Valve PV Peak Velocity 182.0 (50-150 cm/s) Tricuspid Valve TR P. Velocity 287.00 cm/s RAP Estimate 10.00 mmHg RVSP 42.90 mmHg Left Ventricle The left ventricle is normal size. The left ventricular systolic function is normal. The left ventricular ejection fraction is within the normal range. There is normal left ventricular wall thickness. There is normal LV segmental wall motion. The left ventricular diastolic function is normal. LVEF is 55%. Right Ventricle The right ventricle is normal size. The right ventricular systolic function is normal. Atria The left atrium size is normal. The right atrium size is normal. There is no Doppler evidence of interatrial shunt. Aortic Valve The aortic valve opens well. There is no aortic valvular stenosis. No aortic regurgitation is present. Mitral Valve The mitral valve is normal in structure. No evidence of mitral valve stenosis. There is no mitral valve regurgitation noted. Tricuspid Valve Tricuspid valve is grossly normal in structure and function. There is no tricuspid valve stenosis. Mild tricuspid regurgitation. RVSP 20-25 mmHg. Pulmonic Valve The pulmonary valve is normal in structure. Trace pulmonic regurgitation. Great Vessels The aortic root is normal in size. IVC is normal in size and collapses >50% with inspiration. Pericardium There is a small sized, circumferential pericardial effusion present. The largest pocket measures 0.7 cm in diastole. No echo indications of tamponade. No evidence of chamber collapse. Other Information Study Quality: Fair Conclusion Normal biventricular systolic function. Mild TR. Small sized, circumferential pericardial effusion present. The largest pocket measures 0.7 cm in diastole. No echo indications of tamponade. No evidence of chamber collapse. Electronically signed by : Sharon Baugh MD 09/05/2024 11:37:19
[2024-09-05] MEDS: MELATONIN 5MG TABLET 5 MG PO (00:18)
[2024-09-05 04:00] VITALS: BP 103/61; PULSE 85; PULSE 96; RESP 12; TEMP 36.8; O2SAT 97; BMI 18.3
--- NOTE | 2024-09-05 04:05 | PC.NURSE ---
Patient is alert and oriented x4. He was observed to have eyes closed, respirations even and unlabored on room air, and no apparent distress since approximately 02:30 this shift. Patient has not complained of having felt heart palpitations or shortness of breath this shift, but he does continue to report severe ( level 8 ) sternal pain - occasionally radiating to between his upper scapulas - upon deep inhalation and coughing; he stated that the sternal pain is only moderate ( level 5 ) and localized during rest. Blakeslee was administered once per MAR this shift for pain relief. Patient also complained of throat soreness/scratchiness, of which Phenol throat spray was also given per MAR; he stated that the throat spray has helped ease the discomfort. Incentive spirometer use as tolerated at the bedside. Patient reports having a loose cough with sputum production. Diminished lung sounds, heart rate regular (100s bpm). On telemetry. Other vital signs stable. Scheduled medications were administered as appropriately per MAR. Bedtime snacks and Gatorade was provided for consumption; avoiding caffeine use. Melatonin (one time order obtained this shift) was given as a sleep aid. Patient ambulates independently in his room/to the bathroom without difficulties. A urinal is at bedside to measure urine output; patient was encouraged to use it for voiding needs. At this time, the patient is resting in bed without any further complaints. No new needs thus far. Call light within reach.
[2024-09-05] MEDS: PIPERACILLIN/TAZO 3.375 GM in 0.9 % SODIUM CHLORIDE 50 ML IV ×3 (05:58→12:24)
--- NOTE | 2024-09-05 06:05 | PC.NURSE ---
During vital sign assessments for 04:00 this morning, Junior LOCKETT notified me that she discovered the patient resting with his eyes closed, and a vape was found laying on his chest. Upon waking the patient this morning, I discussed with him the finding of his vape by a staff member. The patient admitted to having a vape, stating that it was back in his pocket, as well as a pack of cigarettes. I reiterated to the patient that the use of vapes and cigarettes in this facility goes against our smoking policy. Upon asking if he would like me to lock away his vape and cigarettes in the room drawer, the patient refused and stated that he would prefer to keep the belongings in his pocket. He denied using the vape; nursing staff has not visibly observed the patient using his vape this shift. Loom Overhauler (Barbie Caal RN) was made aware. Findings will be passed along to the oncoming shift.
[2024-09-05 07:54] LABS: Hematocrit 40.3 % (42.0-52.0); Hemoglobin 13.0 g/dL (14.1-18.0); Immature Granulocytes % 1.3 %; Mean Corpuscular HGB Conc 32.3 g/dL (31.8-35.4); Mean Corpuscular Hemoglobin 25.7 pg (27.0-31.2); Mean Corpuscular Volume 79.6 fl (80-94); Nucleated Red Blood Cells % 0 %; Platelet Count 435 K/mm3 (142-424); Red Blood Count 5.06 M/mm3 (4.60-6.20); Red Cell Distribution Width-SD 39.7 fL; White Blood Count 7.8 K/mm3 (4.8-10.8)
[2024-09-05 07:57] VITALS: BP 109/64; PULSE 96; RESP 17; TEMP 36.5; O2SAT 98
--- NOTE | 2024-09-05 07:59 | PC.NURSE ---
Pt does not need anything at this time.
[2024-09-05 08:00] VITALS: PULSE 100
[2024-09-05 08:00] LABS: Alanine Aminotransferase 16 U/L (12-78); Albumin Level 4.0 g/dl (3.5-5.0); Albumin/Globulin Ratio 0.9 (1.1-1.8); Alkaline Phosphatase 99 U/L (38-126); Anion Gap 17.5 mEq/L (5-15); Aspartate Amino Transferase 26 U/L (17-59); Bilirubin,Total 0.9 mg/dl (0.2-1.3); Blood Urea Nitrogen 9 mg/dl (9-20); Calcium 9.4 mg/dl (8.4-10.2); Carbon Dioxide 30 mmol/L (22.0-30.0); Chloride 94 mmol/L (98-107); Creatinine Clearance Estimated 138 mL/min (50-200); Creatinine,Serum 0.70 mg/dl (0.66-1.25); Estimated Glomerular Filt Rate 142 ml/min (>60); GFR (African American) 172 ML/MIN (>60); Globulin 4.4 g/dL (1.3-3.2); Glucose 94 mg/dl (74-100); Potassium 4.5 mmoL/L (3.5-5.1); Sodium 137 mmol/L (136-145); Total Protein,Serum 8.4 g/dl (6.3-8.2)
[2024-09-05 08:05] LABS: C-Reactive Protein 251.0 mg/L (0-4)
[2024-09-05] MEDS: VANCOMYCIN/WATER FOR INJ (PEG) 1.5 GM/300 ML PIGGYBACK IV (08:14)
[2024-09-05] MEDS: HEPARIN SODIUM 5,000 UNIT/ML VIAL 5000 UNIT SUBCUT (08:14)
--- NOTE | 2024-09-05 10:16 | P.CONCA_ITS ---
History of Present Illness History of Present Illness Consult date: 09/05/24 Chief complaint: soa History of present illness: 19-year-old white male without known cardiovascular disease but reported history of daily tobacco use and frequent marijuana and methamphetamine use. Patient presented to the emergency room complaining of several weeks of cough weakness and chills. Workup indicated severely elevated CRP at 254, ESR 51, normal troponin, white blood cell count 14,000, proBNP 800. CTA chest neg for PE but revealed small left pleural effusion and moderate pericardial effusion with possible right middle lobe aspiration. We were consulted for the pericardial effusion. Patient was started on Vanco and Zosyn broad-spectrum and admitted for further workup and evaluation. On my exam patient is alert and oriented sitting upright in bed in no acute dis tress. He reports occasional pain between his shoulder blades when he takes a deep breath but no left-sided chest pain. He is mildly tachycardic around 100 bpm. Lungs are clear to auscultation, no murmur on exam. He does add that he has a history of Raynaud's [facility] Disclaimer: The information contained in this section may have been updated after the patient was seen, as this information can be updated by other users. Medical History Tobacco use Anxiety and depression Mixed connective tissue disease (~05/2020) Insomnia Rheumatoid arthritis History of methamphetamine abuse Raynaud disease Attention deficit hyperactivity disorder (ADHD) Anxiety Family History Father Diabetes Social History Smoking Status: Current every day smoker tobacco type: cigarettes packs per day: 1 alcohol intake: current substance use type: marijuana and methamphetamine current occupational status: employed and other Travel in the last 8 weeks?: Inside the [place] Have you lived/traveled outside US in past 30 days?: No Contact w/someone who lives/traveled outside US past 30 days?: No Exposure to someone with infectious disease in past 14 days?: No Do you have a fever (greater than 100.4 F or 38 C)?: No Have you tested positive for COVID-19?: No Exposed to someone with COVID-19 in past 14 days?: No Do you have a sore throat?: No Do you have a cough?: No Do you have any weakness?: No Do you have any diarrhea?: No Are you experiencing any unusual bleeding?: No Do you have any muscle aches/pain?: No Do you have any abdominal pain?: Yes Are you experiencing loss of taste or smell?: No Review of Systems Constitutional Constitutional: Reports body ache(s), Reports fatigue and Reports weakness Eyes Eyes: Denies loss of vision ENT Ears, Nose, Mouth, and Throat: Denies hearing loss and Denies vertigo *Cardiovascular Cardiovascular: Reports chest pain, Reports dyspnea and Denies syncope *Respiratory Respiratory: Reports cough and Reports dyspnea *Gastrointestinal Gastrointestinal: Denies change in stool character, Denies nausea and Denies vomiting *Genitourinary Genitourinary: Denies difficulty urinating *Musculoskeletal Musculoskeletal: Denies muscle weakness Integumentary/Breasts Skin/Breast: Denies changing lesions *Neurologic Neurologic: Denies loss of vision, Denies syncope, Denies vertigo and Reports weakness Endocrine Endocrine: Reports fatigue Exam Data for Last 24 hours Vital signs and Labs for Last 24 Hours: Temp Pulse Resp BP Pulse Ox O2 Del Method 97.7 F 96 H 17 109/64 L 98 Room Air 09/05/24 07:57 09/05/24 07:57 09/05/24 07:57 09/05/24 07:57 09/05/24 07:57 09/05/24 08:00 Laboratory Results - last 24 hr 09/04/24 10:35: Urine Color Yellow, Urine Appearance Clear, Urine pH 7.0, Ur Specific [place] 1.010, Urine Protein Negative, Urine Glucose (UA) Negative, Urine Ketones Negative, Urine Blood Negative, Urine Nitrate Negative, Urine Bilirubin Negative, Urine Urobilinogen 0.2, Ur Leukocyte Esterase Negative, Urine RBC None, Urine WBC Occasional, Ur Squamous Epith Cells Occasional, Urine Bacteria None 09/04/24 10:37: Chlamy pneumoniae PCR Not detected, Adenovirus (PCR) Not detected, B. pertussis DNA (PCR) Not detected, Coronavirus OC43 (PCR) Not detected, Coronavirus HKU1 (PCR) Not detected, Coronavirus 229E (PCR) Not detected, SARS-CoV-2 (PCR) Not detected, Coronavirus NL63 (PCR) Not detected, Human Metapneumovir PCR Not detected, Influenza A (H1) PCR Not detected, Influ A (H1N1/09) PCR Not detected, Influenza A (H3) PCR Not detected, Influenza Type A (PCR) Not detected, Influenza Type B (PCR) Not detected, M. pneumoniae (PCR) Not detected, Parainfluenza 1 (PCR) Not detected, Parainfluenza 2 (PCR) Not detected, Parainfluenza 3 (PCR) Not detected, Parainfluenza 4 (PCR) Not detected, RSV (PCR) Not detected, Entero/Rhino (PCR) Not detected 09/05/24 07:29: WBC 7.8 D, RBC 5.06, Hgb 13.0 L, Hct 40.3 L, MCV 79.6 L, MCH 25.7 L, MCHC 32.3, RDW 13.7, Plt Count 435 H, MPV 9.6, Neut % (Auto) 68.4, Lymph % (Auto) 15.6, [place] % (Auto) 12.0 H, Eos % (Auto) 2.1, Baso % (Auto) 0.6, Neut # (Auto) 5.3, Lymph # (Auto) 1.2, [place] # (Auto) 0.9, Eos # (Auto) 0.2, Baso # (Auto) 0.1, ESR 41 H, Sodium 137, Potassium 4.5, Chloride 94 L, Carbon Dioxide 30, Anion Gap 17.5 H, BUN 9 D, Creatinine 0.70 D, Estimated Creat Clear 138, Estimated GFR 142, Est GFR ( Amer) 172 D, Glucose 94, Calcium 9.4, Total Bilirubin 0.9, AST 26, ALT 16, Alkaline Phosphatase 99, C-Reactive Protein 251.0 H, Total Protein 8.4 H, Albumin 4.0, Globulin 4.4 H, Albumin/Globulin Ratio 0.9 L I & O for Last 24 hours: Intake & Output 09/02/24 09/03/24 09/04/24 09/05/24 23:59 23:59 23:59 23:59 Intake Total 700 / 1736 1036 / 1036 Output Total 900 / 1050 300 / 300 Balance -200 / 686 736 / 736 Weight 125 lb 126 lb 3.2 oz 128 lb 6.4 oz Microbiology Reports for the Last 24 Hours: Microbiology 09/04/24 07:09 Sputum - Expectorated Sputum Gram Stain - Final Constitutional Constitutional: no acute distress and cooperative Comments: appears frail *Routine HEENT Exam Eye: Present PERRL *Routine Respiratory Exam Respiratory: Present CTA bilaterally; Absent accessory muscle use, wheezes or crackles *Routine Cardiovascular Exam Cardiovascular: Present RRR, Normal S1 and Normal S2; Absent murmur, gallop or rubs *Routine Abdominal Exam Abdominal: Present soft; Absent tenderness *Routine Extremities Exam Extremities: Present pulses intact; Absent cyanosis or edema *Routine Skin Exam Skin: Present intact; Absent erythema or wounds *Routine Neurological Exam Neurological: Present alert and oriented X3 Routine Psychiatric Exam Psychiatric: Present cooperative Meds Home Medications and Allergies Home Medications ?Medication ?Instructions ?Recorded ?Confirmed ?Type No Known Home Medications 09/04/24 0708/24 History New Prescriptions to Start Prescriptions: Allergies Allergy/AdvReac Type Severity Reaction Status Date / Time No Known Allergies Allergy Verified 07/28/23 09:58 Assessment and Plan *Assessment and plan (1) Pericardial effusion: Status: Acute Category: Medical Code(s): I31.39 - Other pericardial effusion (noninflammatory) (2) Aspiration pneumonia: Status: Acute Category: Medical Code(s): J69.0 - Pneumonitis due to inhalation of food and vomit Plan Acute Pericardial Effusion, presumed Acute Pericarditis - new dx on CT here in setting of presumed infection with weakness, fever, chills, elevated ESR, CRP, WBC - Antibiotics per primary service - infectious workup in process - BP stable - HR - slightly tachy around 100 - ECHO - pending - EKG - ST 127 Presumed PNA - WBC 14k, cough, weakness, fever, elevated CRP/ESR - infectious labs pending - CT Chest - possible RML aspiration - on broad spectrum antibiotics Tob Use - advise cessation Marijuana and Meth Use - advise cessation 09/05: CV stable, further plans/recs pending formal ECHO read. ADDENDUM: Echo shows mild pericardial effusion consistent with mild pericarditis. Will add colchicine and Ibuprofen. CV stable for discharge. Will need limited ECHO and f/u in our office 2 weeks. Return to ER if sudden/severe changes in vitals or new/worsening symptoms. CV DC Meds: Colchicine 0.6mg BID x3 months Ibuprofen 600mg BID-TID x2 weeks
[2024-09-05 12:00] VITALS: BP 137/78; PULSE 70; PULSE 93; RESP 18; TEMP 36.5; O2SAT 96
--- NOTE | 2024-09-05 13:54 | P.DS_ITS ---
<Statement entered by Mo Oliver MD - 09/05/24 17:41> Rounded on patient after nurse practitioner. Personally examined and interviewed patient. Agree with exam findings and care plan as documented. General Admission date:: 09/04/24 Discharge date: 09/05/24 HPI HPI HPI: Patient is a 19-year-old male with past medical history of active tobacco use, clinical seizure disorder who presents to the hospital due to shortness of breath according to patient he thinks that he has been having pneumonia he has been feeling sick for the past 1 week and has been getting short of breath also has cough associated without phlegm production. He also mentions he is actively using tobacco along with meth use and marijuana intermittently. Last meth use 2 days ago. Otherwise he denied fevers chills diarrhea constipation dysuria. On further evaluation patient was found to have pericardial effusion and was admitted for further evaluation. Hospital Course Hospital Course Hospital Course: Mr. Pritchard is a 19-year-old male who presented to the emergency department yesterday with shortness of air x 1 week. He states that he is worried he has pneumonia. Patient does endorse the use of meth and marijuana. He also smokes and vapes. Workup showed moderate pericardial effusion, no evidence of tamponade, noted heart strain. Patient vital signs stable, afebrile patient noted to be tachypneic, O2 saturation 98%. He also had notable leukocytosis of a white count of 14. BNP elevation at 700. CT for PE protocol was negative. Workup also worrisome for aspiration pneumonia. Patient was admitted to the medical surgical unit with cardiac consult for further workup. #Pericardial effusion #Pericarditis ?Echo shows mild pericardial effusion consistent with mild pericarditis per cardiology recommendation will start colchicine 0.6 mg twice daily x 3 months, ibuprofen 600 mg twice daily x 2 weeks. Patient will follow-up in 2 weeks with outpatient cardiology. Instructed patient if symptoms progress, shortness of breath, chest pain, fever return to the emergency room. #Aspiration pneumonia ?Patient does have notable white count of 14. ?Patient does have a dry cough, lung sounds CTA. Oxygen saturation stable on room air. ?Concern for aspiration pneumonia in the setting of drug use. Will start patient on Augmentin 875/125 mg twice daily. #Tobacco use ?Patient states he smokes approximately 1 pack/day but also vapes. Nicotine patches sent to pharmacy. Discussed smoking cessation with patient. Total time spent on discharge 34 minutes in counseling, documentation, chart review, and direct care with patient. Exam Data for Last 24 hours Vital signs and Labs for Last 24 Hours: Temp Pulse Resp BP Pulse Ox O2 Del Method 97.7 F 93 H 18 137/78 96 Room Air 09/05/24 12:00 09/05/24 12:00 09/05/24 12:00 09/05/24 12:00 09/05/24 12:00 09/05/24 13:00 Laboratory Results - last 24 hr 09/05/24 07:29: WBC 7.8 D, RBC 5.06, Hgb 13.0 L, Hct 40.3 L, MCV 79.6 L, MCH 25.7 L, MCHC 32.3, RDW 13.7, Plt Count 435 H, MPV 9.6, Neut % (Auto) 68.4, Lymph % (Auto) 15.6, [place] % (Auto) 12.0 H, Eos % (Auto) 2.1, Baso % (Auto) 0.6, Neut # (Auto) 5.3, Lymph # (Auto) 1.2, [place] # (Auto) 0.9, Eos # (Auto) 0.2, Baso # (Auto) 0.1, ESR 41 H, Sodium 137, Potassium 4.5, Chloride 94 L, Carbon Dioxide 30, Anion Gap 17.5 H, BUN 9 D, Creatinine 0.70 D, Estimated Creat Clear 138, Estimated GFR 142, Est GFR ( Amer) 172 D, Glucose 94, Calcium 9.4, Total Bilirubin 0.9, AST 26, ALT 16, Alkaline Phosphatase 99, C-Reactive Protein 251.0 H, Total Protein 8.4 H, Albumin 4.0, Globulin 4.4 H, Albumin/Globulin Ratio 0.9 L I & O for Last 24 hours: Intake & Output 09/02/24 09/03/24 09/04/24 09/05/24 23:59 23:59 23:59 23:59 Intake Total 700 / 1736 1306 / 1306 Output Total 900 / 1050 1100 / 1100 Balance -200 / 686 206 / 206 Weight 56.699 kg 57.243 kg 58.241 kg Microbiology Reports for the Last 24 Hours: Microbiology 09/04/24 07:09 Sputum - Expectorated Sputum Gram Stain - Final Results Data Completed and Pending Labs on day of discharge: Labs from last 24 hours 09/05/24 07:29 WBC 7.8 D RBC 5.06 Hgb 13.0 L Hct 40.3 L MCV 79.6 L MCH 25.7 L MCHC 32.3 RDW 13.7 Plt Count 435 H MPV 9.6 Neut % (Auto) 68.4 Lymph % (Auto) 15.6 [place] % (Auto) 12.0 H Eos % (Auto) 2.1 Baso % (Auto) 0.6 Neut # (Auto) 5.3 Lymph # (Auto) 1.2 [place] # (Auto) 0.9 Eos # (Auto) 0.2 Baso # (Auto) 0.1 ESR 41 H Sodium 137 Potassium 4.5 Chloride 94 L Carbon Dioxide 30 Anion Gap 17.5 H BUN 9 D Creatinine 0.70 D Estimated Creat Clear 138 Estimated GFR 142 Est GFR ( Amer) 172 D Glucose 94 Calcium 9.4 Total Bilirubin 0.9 AST 26 ALT 16 Alkaline Phosphatase 99 C-Reactive Protein 251.0 H Total Protein 8.4 H Albumin 4.0 Globulin 4.4 H Albumin/Globulin Ratio 0.9 L DS: Diagnosis Discharge Diagnosis (1) Pericardial effusion: Status: Acute Code(s): I31.39 - Other pericardial effusion (noninflammatory) (2) Aspiration pneumonia: Status: Acute Code(s): J69.0 - Pneumonitis due to inhalation of food and vomit (3) Pericarditis: Status: Acute Code(s): I31.9 - Disease of pericardium, unspecified (4) Tobacco use: Status: Chronic Code(s): Z72.0 - Tobacco use Meds Home Medications and Allergies Home Medications ?Medication ?Instructions ?Recorded ?Confirmed ?Type amoxicillin 875 mg-potassium 1 tab PO BID #18 tabs 09/23 Rx clavulanate 125 mg tablet colchicine 0.6 mg tablet (Colcrys) 0.6 mg PO BID 90 da ys #180 tabs 09/05/24 Rx ibuprofen 600 mg tablet 600 mg PO BID 14 days #28 ta bs 09/05/24 Rx nicotine 21 mg/24 hr daily 21 mg transdermal DAILYP MA N 09/05/24 Rx transdermal patch Nicotine Cravings 28 days #2 8 ea New Prescriptions to Start Prescriptions: amoxicillin-pot clavulanate PatricShelly colchicine [Colcrys] PatricShelly ibuprofen Patric,Shelly nicotine PatricShelly Allergies Allergy/AdvReac Type Severity Reaction Status Date / Time No Known Allergies Allergy Verified 07/28/23 09:58 Discharge Plan Disposition Patient Disposition: Home, Self-Care Condition: Fair Follow up Plan Follow up with: Manoj Sapp PA [Physician [employer], Cardiology] - Enter time for follow up Provider,Referral, [Primary Care Provider, Medical] - Enter time for follow up Prescriptions/Medication Reconciliation: New nicotine 21 mg/24 hr Patch 24 Hour 21 mg transdermal DAILYP PRN (Reason: Nicotine Cravings) 28 Days Qty: 28 0RF ibuprofen 600 mg Tablet 600 mg PO BID 14 Days Qty: 28 0RF colchicine [Colcrys] 0.6 mg Tablet 0.6 mg PO BID 90 Days Qty: 180 0RF amoxicillin-pot clavulanate 875-125 mg tablet 1 tab PO BID Qty: 18 0RF Problem Reconciliation Problems Reviewed?: Yes Patient Discharge Instructions ACTIVITY: Continue current activity DIET: continue same diet Patient Instructions: DI for Pericarditis, DI for Shortness of Breath Print Language: Thai Providers Primary Care Provider: Provider,Referral Admit Provider: Mo Oliver Attending Provider: Mo Oliver
[2024-09-05] MEDS: IBUPROFEN 600 MG TABLET PO (14:02)
[2024-09-05] MEDS: COLCHICINE 0.6MG TABLET 0.6 MG PO (14:03)
[2024-09-05 14:16] LABS: Lyme Ab CIA Negative (Negative)
--- NOTE | 2024-09-05 16:42 | PEERSUPPORT ---
Peer Support Note Patient Information Patient Information: DOS: 09/05/2024 ? Pt stated he had started using methamphetamine in 2017 after the of his father. (snorting, smoking) He has been able to stop in the past, and with his health issues now he will do it again. ? He is interested in outpatient information, but no appointment needed at this time. ? He confirms safe housing with a family member. ? Pt receptive to ps, expressing gratitude for support. ? Potential Barriers: Lack of connection to recovery ? Goals: Employment [place] [facility] ? Harm Reduction: -Connection to [facility] -Education on substance use disorder -Awareness to recovery community/services and resources -Treatment referral and resources ? Plan of action: -Refrain from drugs and/or alcohol -Take medication as prescribed -Attend follow up appointments -Ps will follow up with pt periodically
--- NOTE | 2024-09-07 10:59 | SW/DCPLANNER ---
Phone patient x2. Left message with name and call back number. Ya Graham
[2024-09-07 12:19] LABS: Lyme B. burgdorferi PCR Blood Negative (Negative)
== END 2024-09-05 14:59 | disposition home or self-care (01) ==
LOC: ER 23:56 → 2ND 09-04 02:19
PROVIDERS: Internal Medicine; Student in an Organized Health Care Education/Training Program; Admitting Provider Internal Medicine Adolescent Medicine; Emergency Provider Emergency Medicine; Visit Provider Internal Medicine Adolescent Medicine
DX: I30.9 Acute pericarditis, unspecified (principal); J69.0 Pneumonitis due to inhalation of food and vomit; F17.210 Nicotine dependence, cigarettes, uncomplicated; E87.1 Hypo-osmolality and hyponatremia; D72.829 Elevated white blood cell count, unspecified; M06.9 Rheumatoid arthritis, unspecified; R00.0 Tachycardia, unspecified; E87.20 Acidosis, unspecified; F11.90 Opioid use, unspecified, uncomplicated; F12.90 Cannabis use, unspecified, uncomplicated
CPT/HCPCS: Q9967; 0223U; 36415; 71046; 71275; 80048; 80053; 81001; 83880; 84484; 85007; 85025; 85027; 85378; 85651; 86140; 86618; 86803; 87070; 87205; 87252; 87389; 87476; 87633; 93005; 93306; 96365; 96366; 96367; 96375; 96376; 99285; G0378; J1644; J1938; J2543; J3375

== ENCOUNTER 2025-02-21 13:19 | Emergency (ER) | payer OTHER, SELFPAY ==
[2025-02-21 13:27] VITALS: BP 131/84; PULSE 75; RESP 18; TEMP 36.9; O2SAT 98; BMI 19.3
--- NOTE | 2025-02-21 13:33 | ED_ITS ---
<Statement entered by Barbie Oneill MD - 02/21/25 14:37> I was consulted by the INESSA, and we discussed the complexity of the problems being addressed. I approved the treatment and management plan for this patient's care in the emergency department, thus performing a substantive portion of the medical decision making. Barbie Oneill MD, BEULAH, FACEP Discharge Plan Disposition Patient Disposition: Home, Self-Care Condition: Good Prescriptions Prescriptions: New polymyxin B sulf-trimethoprim 10,000 unit- 1 mg/mL drops 2 drp ophthalmic (eye) QID 5 Days Qty: 10 0RF Rx Instructions: Please utilize 2 drops in the affected eye 4 times daily for 5 days. No Action nicotine 21 mg/24 hr Patch 24 Hour 21 mg transdermal DAILYP PRN (Reason: Nicotine Cravings) 28 Days Qty: 28 0RF ibuprofen 600 mg Tablet 600 mg PO BID 14 Days Qty: 28 0RF colchicine [Colcrys] 0.6 mg Tablet 0.6 mg PO BID 90 Days Qty: 180 0RF amoxicillin-pot clavulanate 875-125 mg tablet 1 tab PO BID Qty: 18 0RF Referrals Follow up/Referrals: Provider,Referral, MD [Primary Care Provider, Medical] - See instructions Activity Restrictions/Add. Instructions Additional Instructions/Restrictions: Please return to the emergency department with any worsening signs or symptoms. Please use your ophthalmic drops as prescribed. Please follow-up with your family doctor in the upcoming days/weeks We will call you with any results of your respiratory swab that may be actionable. No news is good news. I recommend [id number] allergy medications as needed for other symptomatic relief. Clinical Impressions Clinical Impression: Viral syndrome Instructions Patient Instructions: DI for Conjunctivitis, DI for Viral Syndrome Print Language Print Language: Luxembourgish Discharge ED Provider: Barbie Oneill General Adult HPI General Chief complaint: Eye Problems Stated complaint: poss pink eye- bilateral Time Seen by Provider: 02/21/25 13:28 Mode of Arrival: Ambulatory Source of Information: Patient Description of Symptoms (Recalled from ER Triage Doc. by RN): patient presents to ED for possible bilateral possible pink eye. patient has had white and green drainage out of both eyes. symptoms started 2 days ago. patient stated he also had 12 beers and a 1/5 of liquor 3 days ago. History of Present Illness HPI narrative: 19-year-old male presents to the emergency department with bilateral eye irritation watery and teary drainage, no real purulent drainage, patient states it started in his left eye, now progressed to his right eye, he also endorses cough and congestion and sore throat, he states that his friend has similar symptomatology, denies any fever chills chest pain shortness of breath nausea vomiting constipation diarrhea no urinary symptomatology, patient has past medical history consistent with ADHD and Raynaud's, however he does not take any medications at home daily, patient admits to current everyday smoking, denies any drug use, admits to occasional alcohol use. Initial triage vitals are grossly unremarkable. Please note that above description of symptoms, in this electronic medical record under categorization of recalled from ER triage doctor by RN are reflective of an initial nursing assessment, however, is not reflective of my full history and physical exam that was personally taken and clarified. Consequentially, this preceding description of symptoms, which may include the patient's categorized chief complaint in the EMR, do not reflect my personal clinical impression, and the ultimate description of history of present illness and patient stated complaints should be deferred to this section of the note. Unless stated otherwise or congruent with this section of the note, additional signs, symptoms, or incongruence should be interpreted as inaccurate with my clinical impression. Onset (ago): day(s) Related Data Previous Rx's ?Medication ?Instructions ?Recorded amoxicillin 875 mg-potassium 1 tab PO BID #18 tabs 09/23 clavulanate 125 mg tablet colchicine 0.6 mg tablet (Colcrys) 0.6 mg PO BID 90 da ys #180 tabs 09/05/24 ibuprofen 600 mg tablet 600 mg PO BID 14 days #28 ta bs 09/05/24 nicotine 21 mg/24 hr daily 21 mg transdermal DAILYP TX N 09/05/24 transdermal patch Nicotine Cravings 28 days #2 8 ea polymyxin B sulfate 10,000 2 drp ophthalmic (eye) QID 5 days 02/21/25 unit-trimethoprim 1 mg/mL eye drops #10 mL Allergies Allergy/AdvReac Type Severity Reaction Status Date / Time No Known Allergies Allergy Verified 07/28/23 09:58 [facility] Disclaimer: The information contained in this section may have been updated after the patient was seen, as this information can be updated by other users. Medical History Tobacco use Anxiety and depression Mixed connective tissue disease (~05/2020) Insomnia Rheumatoid arthritis History of methamphetamine abuse Raynaud disease Attention deficit hyperactivity disorder (ADHD) Anxiety Family History Father Diabetes Social History Smoking Status: Current every day smoker tobacco type: cigarettes packs per day: 1 alcohol intake: current substance use type: marijuana and methamphetamine current occupational status: employed and other Travel in the last 8 weeks?: Inside the [place] Have you lived/traveled outside US in past 30 days?: No Contact w/someone who lives/traveled outside US past 30 days?: No Exposure to someone with infectious disease in past 14 days?: No Do you have a fever (greater than 100.4 F or 38 C)?: No Have you tested positive for COVID-19?: No Exposed to someone with COVID-19 in past 14 days?: No Do you have a sore throat?: No Do you have a cough?: No Do you have any weakness?: No Do you have any diarrhea?: No Are you experiencing any unusual bleeding?: No Do you have any muscle aches/pain?: No Do you have any abdominal pain?: No Are you experiencing loss of taste or smell?: No Other Medical History Have you received the Flu Vaccine for this season: No Have you received the Pneumonia Vaccine: No ROS Obtained: Yes All systems reviewed & no additional complaints except as documented Physical Exam General General appearance: alert and in no apparent distress Head Head exam: atraumatic and normocephalic Eye Eye exam: Present PERRL, EOMI, conjunctival redness, conjunctival injection and other (Bilateral conjunctival injection/redness with clear discharge, no purulent discharge, no pain with extraocular movements no obvious ocular foreign body to my exam, no periorbital tenderness periorbital swelling, no proptosis.); Absent periorbital swelling or periorbital tenderness ENT ENT exam: Present normal oropharynx, mucous membranes moist and other (No erythema in the posterior oropharynx, no oropharyngeal edema no tonsillar exudates uvula midline) Neck Neck exam: Present normal inspection Chest Chest inspection: Present normal inspection and symmetric chest wall rise Respiratory Respiratory exam: Present normal lung sounds bilaterally; Absent respiratory distress Cardiovascular Cardiovascular exam: Present regular rate and normal rhythm Abdominal Exam Abdominal exam: Present soft; Absent tenderness Extremities Exam Extremities exam: Present normal inspection Neurological Exam Neurological exam: Present alert and oriented X3 Psychiatric Psychiatric exam: Present normal affect Skin Skin exam: Present warm and dry Medical Decision Making Medical Records Medical records reviewed: Yes I reviewed the patient's medical records. Screening: Per USPSTF and CDC recommendations, given the prevalence of disease in our region, it is our hospital?s policy to screen for HIV and viral Hepatitis for all patients aged 18 and over and those with ongoing risk factors. Driss Inquiry Pt receiving controlled substance: No Driss was queried for this patient: No Vital Signs: 02/21/25 13:27 Temperature 98.5 F Temperature Source Oral Pulse Rate [Right Radial] 75 Respiratory Rate 18 Blood Pressure [Right Arm] 131/84 Blood Pressure Mean [Right Arm] 99 Blood Pressure Source [Right Arm] Automatic Cuff Blood Pressure Position [Right Arm] Sitting 02 Sat by Pulse Oximetry 98 Oxygen Delivery Method Room Air Lab Data Lab results reviewed: Yes I reviewed the patient's lab results. Lab Results 02/21/25 14:05: Group A Strep Rapid Negative Orders (Tests/Meds): ORDERS Category Date Time Status Mini Respiratory Panel Stat Lab 02/21/25 14:05 Received Rapid Strep Scrn Group A [Strep Scrn Group A (Rapid)] Lab 02/21/25 14:05 Completed Stat Strep Screen Confirmation Stat Micro 02/21/25 14:05 Received Medical Decision Narrative: 19-year-old male presents to the emergency department with URI type symptomatology bilateral watery eye discharge and irritation, for the last 2 days, patient friend has similar symptomatology, differential diagnose include but not limited to, viral conjunctivitis, allergic conjunctivitis, bacterial conjunctivitis, acute URI, viral sinusitis, viral pharyngitis, streptococcal pharyngitis among others. I discussed this patient's case with the attending physician Dr. Oneill Will obtain mini respiratory panel and streptococcal rapid antigen screen for further evaluation. Will treat the patient prophylactically for bacterial Vitas due to symptomatology, slightly URI/viral cause of the patient's symptomatology. Nonetheless, I will prescribe Trimethoprim polymyxin B ophthalmic drops 1 to 2 drops 4 times daily for 5 days in the affected eye. Strep swab negative. I discussed the results with the patient at the bedside patient is in agreement with the current discharge plan/treatment plan. Will call patient with any actionable results of respiratory panel. Patient voiced understanding and agreed with the current treatment plan/discharge plan. Shared decision making was utilized I believe this appropriate as would not exchange consultant at this time. Patient follow-up PCP and senior lead java developer in the upcoming days/weeks strict return precautions given. Critical Care Critical Care Time Critical Care Time: No
--- OUTSIDE RECORDS SUMMARY | 2025-02-21 13:36 | XMS_ITS | Clinical Summary ---
Author Organization [facility] Address [address] [id number] Care Team Providers Care Tractor Trailer Technician Name Role Phone Dayna Monroe LINUS Primary Care Provider [phone] Allergies No known active allergies Medications buPROPion [...] arthritis w/contracture. +ILD. Positive: KERVIN, high titer LIFE SCIENCES DIRECTOR, anti-Sm, anti-chromatin abs. +RF+CCP. Neg: dsDNA, SSA/SSB, [...] sildenafil if no improvement. 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 Continue MMF (1000 [...] Date Last Done Comments [facility]-Depression Screening 2003 [facility]-Infant/Child/Adol SDOH Screenings 2003 [facility]- SDOH Screenings 2021 [facility]-Adult SDOH Screenings 2021 [id number] Vaccine (1 - 2024- season) 2024 [facility]-Influenza Vaccine (#1) 2024 03/05/2017 [facility]-DTaP,Tdap,and Td Vaccines (7 - Td or Tdap) 09/16/2025 09/17/2015, 09/15/2007, 02/05/2005, Additional history exists [facility]-Zoster Vaccines (1 of 2) 2053 09/17/2015, 12/10/2004 [facility]-Hepatitis B Vaccines Completed 004, 2003, 2003 [facility]-Pneumococcal Vaccine: Pediatrics (0 to 5 Years) and At-Risk Patients (6 to 49 Years) Aged Out 2003, 2003 No longer eligibl e based on patient's age to complete this topic [facility]-HIB Vaccines Completed 12/10/2004, , 2003, Additional history exists [facility]-IPV Vaccines Completed 09/15/2007, 08/2004, 2003, Additional history exists [facility]-Varicella Vaccines Completed 09/17/2015, 2004 [facility]-Hepatitis A Vaccines Completed 10/07/2017, 05/2017 HPV Vaccines Completed 06/28/2020, 10/07/2017 [facility]-Rotavirus Vaccines Aged Out No lo nger eligible based on patient's age to complete this topic Care Teams Tractor Trailer Technician Relationship Specialty Start Date End Date Dayna Monroe PA [address] [place], [place] [phone] PCP - General 07/13/20
[2025-02-21 14:14] LABS: Coronavirus 19, PCR Not Detected (NotDetected); Influenza A, PCR Not Detected (NotDetected); Influenza B, PCR Not Detected (NotDetected)
[2025-02-21 14:21] LABS: Strep Scrn Group A (Rapid) Negative (Negative)
[2025-02-21 14:48] VITALS: BP 129/77; PULSE 80; RESP 16; TEMP 36.6; O2SAT 99
== END 2025-02-21 14:49 | disposition home or self-care (01) ==
PROVIDERS: Physician Assistant; Emergency Provider Student in an Organized Health Care Education/Training Program
DX: H57.13 Ocular pain, bilateral (principal); B30.9 Viral conjunctivitis, unspecified; B34.9 Viral infection, unspecified
CPT/HCPCS: 87430; 87631; 99283